=== PATIENT | female | born 1965 | race Caucasian/White ===

== ENCOUNTER → 2019-09-14 | Day surgery (SDC) | payer BC, OTHER ==
[~2019-09-14] MED LIST: ASPIR 8181 MG PO; BUPIVACAINE 0.25% 30ML SDV INJ ONE; DEXAMETHASONE SOD PHOS 10 MG/1 ML VIAL ONE; FENTANYL CITRATE/PF 100MCG/2 ML INJ ONE; GABAPENTIN300 MG PO; IOPAMIDOL 200 MG/ML 20 ML VIAL IT ONE; JANUMET 50-1,01 EACH PO; LEXAPRO20 MG PO; LIDOCAINE HCL 1% 30ML-PF VIAL ONE; LIDOCAINE HCL 2% LOCAL INJ 5 ML SDV VIAL INJ ONE; LISINOPRIL2.5 MG PO; METFORMIN HCL500 MG PO; MIDAZOLAM HCL 2 MG/2 ML VIAL ONE; MULTIBETIC PO; NEXIUM20 MG PO; PRAVACHOL40 MG PO; PROPOFOL IV EMULSION 10 MG/ML 20 ML VIAL ONE; TRIAMTERENE-HCTZ1 EA PO; VIT D3 PO
[2019-09-14 09:05] VITALS: BP 108/65
== END | disposition home or self-care (01) ==
LOC: OR 06:10
PROVIDERS: ATTEND Physical Medicine & Rehabilitation Pain Medicine
DX: M54.16 Radiculopathy, lumbar region (principal); R93.7 Abnormal findings on diagnostic imaging of other parts of musculoskeletal system; E66.01 Morbid (severe) obesity due to excess calories; E11.40 Type 2 diabetes mellitus with diabetic neuropathy, unspecified; I10 Essential (primary) hypertension; K21.9 Gastro-esophageal reflux disease without esophagitis; F17.210 Nicotine dependence, cigarettes, uncomplicated; Z88.8 Allergy status to other drugs, medicaments and biological substances; Z01.810 Encounter for preprocedural cardiovascular examination; Z01.812 Encounter for preprocedural laboratory examination; Z11.59 Encounter for screening for other viral diseases; Z79.82 Long term (current) use of aspirin; Z79.84 Long term (current) use of oral hypoglycemic drugs; Z68.30 Body mass index [BMI] 30.0-30.9, adult; Z85.841 Personal history of malignant neoplasm of brain; Z92.3 Personal history of irradiation
CPT/HCPCS: 36415; 64483; 64484; 82948; 87635; 93005; J1100; J2001 ×2; J2250; J2704; J3010; Q9967; 77003

== ENCOUNTER 2019-09-19 22:06 | Emergency (ER) | payer BC ==
[~2019-09-19] VITALS: Ht 165.1 cm; Wt 99.3 kg
[~2019-09-19 22:06] MED LIST changes: -BUPIVACAINE 0.25% 30ML SDV INJ ONE; -DEXAMETHASONE SOD PHOS 10 MG/1 ML VIAL ONE; -FENTANYL CITRATE/PF 100MCG/2 ML INJ ONE; -IOPAMIDOL 200 MG/ML 20 ML VIAL IT ONE; -LIDOCAINE HCL 1% 30ML-PF VIAL ONE; -LIDOCAINE HCL 2% LOCAL INJ 5 ML SDV VIAL INJ ONE; -MIDAZOLAM HCL 2 MG/2 ML VIAL ONE; -PROPOFOL IV EMULSION 10 MG/ML 20 ML VIAL ONE
[2019-09-19] MEDS ORDERED: MORPHINE SULFATE INJ 4 MG/ML INJ 1ML IM STA (22:55)
--- NOTE | 2019-09-19 22:55 | Emergency Department Note ---
History of Present Illnes History of Present Illness Chief Complaint: Back Pain History of Present Illness This is a 54 year old female with acute on chronic back pain s/p back injection by her pain management physician since . Pain started on R leg and migrated to L leg pain. . Historian: Patient Arrival Mode: Car Onset (how long ago): day(s) (4) Radiation: Reports back, Reports extremity Severity: moderate Onset quality: gradual Duration (how long): day(s) (4) Timing of current episode: constant Progression: worsening Context: Reports recent immobilization Relieving factors: rest Exacerbating factors: movement Associated symptoms: Reports denies other symptoms Previous service: medications given, tests performed Past Medical/Family History Physician Review I have reviewed the patient's past medical and family history. Any updates have been documented here. Past Medical History Recent Fever: No Clinical Suspicion of Infectio: No New/Unexplained Change in Ment: No Past Medical History: Hypertension Social History Smoking Cessation: Never Smoker Alcohol Use: None Any Illegal Drug Use: No Review of Systems Review of Systems Constitutional: Denies fever Musculoskeletal: Reports muscle pain, Reports other (R greater than L back pain) Physical Exam Related Data Allergies: Coded Allergies: celecoxib (Verified Allergy, Intermediate, 09/11/19) FLU SYMPTOMS Physical Exam CONSTITUTIONAL Constitutional: Present well-developed, Present morbidly obese HENT HENT: Present normocephalic, Present atraumatic, Present oropharynx clear/moist, Present nose normal HENT L/R: Present left ext ear normal, Present right ext ear normal EYES Eyes: Reports PERRL, Reports conjunctivae normal NECK Neck: Present ROM normal PULMONARY Pulmonary: Present effort normal, Present breath sounds normal CARDIOVASCULAR Cardiovascular: Present regular rhythm, Present heart sounds normal, Present capillary refill normal, Present normal rate GASTROINTESTINAL Abdominal: Present soft, Present nontender, Present bowel sounds normal GENITOURINARY Genitourinary: Present exam deferred SKIN Skin: Present warm, Present dry MUSCULOSKELETAL Musculoskeletal: Present tenderness (R calf) NEUROLOGICAL Neurological: Present alert, Present oriented x 3, Present no gross motor or sensory deficits PSYCHOLOGICAL Psychological: Present mood/affect normal, Present judgement normal Results Imaging Imaging results reviewed: Yes Impressions [place] [id number] Patient Name: VIOLETA HUNG MR #: [id number] : 1965 Age/Sex: 54/F Req #: [id number] [facility] Physician: Ordered by: SOWMYA MONAE DO Report #: [id number] Location: Room/Bed: Procedure: [id number] CT/CT LUMBAR SPINE WO Exam Date: 09/19/19 Exam Time: 2335 REPORT STATUS: Signed History: Low back pain, radiating to the right side Comparison studies: None Technique: Axial images were obtained from T12 through the sacrum. Coronal and sagittal images reconstructed from the axial data. Intravenous contrast: None Dose modulation, iterative reconstruction, and/or weight based adjustment of the mA/kV was utilized to reduce the radiation dose to as low as reasonably achievable. Findings: Number of non-rib bearing vertebral bodies: 5 Alignment: Normal lordosis. No scoliosis. Soft tissues: No prior spinal abnormalities. Atherosclerotic calcifications of the abdominal aorta. Paraspinal muscles: Unremarkable. Vertebrae: No fractures, infection or neoplasm. Degenerative changes: L1-L2: Disc degeneration with decreased intervertebral space. Diffuse disc osteophyte complex with superimposed left central disc protrusion results in no significant canal stenosis or foraminal narrowing L2-L3: Patent canal and foramina L3-L4: Mild diffuse disc bulge and mild facet hypertrophy results in mild canal stenosis and mild bilateral foraminal narrowing L4-L5: Diffuse disc bulge, mild facet hypertrophy and ligamentum flavum thickening results in moderate canal stenosis and moderate bilateral foraminal narrowing. L5-S1: Disc degeneration with decreased intervertebral space. Posterior disc osteophyte complex asymmetric to the right, and moderate facet hypertrophy results in severe canal stenosis, obliteration of the right subarticular recess, severe right and mild left foraminal narrowing Sacroiliac joints: No significant degenerative changes. IMPRESSION: 1. Severe degenerative canal stenosis, narrowing of the right subarticular recess and severe right foraminal narrowing at L5-S1. Impingement of the exiting L5 and descending S1 nerve root on the right side. 2. Moderate degenerative canal stenosis and moderate degenerative bilateral foraminal narrowing at L4-L5. 3. Other degenerative changes without significant (moderate or severe) canal stenosis or foraminal narrowing. Signed by: DR Ayaz Langley M.D. on 09/20/2019 12:26 AM Dictated By: AYAZ HICKMAN MD Transcribed By: LUIS on 09/20/1925 COPY TO: SOWMYA MONAE DO~ Diagnostics Tests Diagnostic test(s) reviewed: Yes Diagnostic comments Venous Duplex r LE : negative for DVT Assessment & Plan Medical Decision Making MDM 54 year old female with h/o chronic back pain presents to the ED with acute onset of R calf pain which radiates to the L Leg. Patient with recent epidural steroid injection. Denies f/c or saddle anesthesia. CTS without fx; severe foraminal stenosis. Venous Duplex neg for DVT R LE. referral to Dr Mcconnell, Rx tylenol #3. Overdose risk score of 450 Assessment & Plan Final Impression: (1) Lumbar radiculopathy Depart Disposition: HOME, SELF-CARE Last Vital Signs Date Time Temp Pulse Resp B/P (MAP) Pulse Ox O2 Delivery O2 Flow Rate FiO2 09/20/19 01:03 74 17 135/80 100 09/19/19 22:54 98.7 Home Meds Reported Medications Esomeprazole Magnesium (NEXIUM) 20 Mg Capsule.dr, 20 MG PO DAILY, CAP PROTONIX THERAPEUTIC INTERCHANGE PER [facility] 09/11/19 Aspirin (ASPIR 81) 81 Mg Tablet.dr, 81 MG PO DAILY 09/11/19 [Multibetic] No Conflict Check, PO DAILY 09/11/19 [Vit D3] No Conflict Check, PO DAILY 09/11/19 Sitagliptin Phos/Metformin Hcl (JANUMET 50-1,000 MG TABLET) 1 Each Tablet, 1 TAB PO BID 09/11/19 Escitalopram Oxalate (LEXAPRO) 20 Mg Tablet, 20 MG PO DAILY, TAB 09/11/19 Pravastatin Sodium (PRAVACHOL) 40 Mg Tablet, 40 MG PO HS, TAB THERAPEUTICALLY SUBSTITUTED WITH SIMVASTATIN 20MG 09/11/19 Triamterene/Hctz (TRIAMTERENE-HCTZ 37.5-25 MG TB) 1 Ea Tab, 1 EACH PO DAILY, TAB 09/11/19 Lisinopril (LISINOPRIL) 2.5 Mg Tablet, 2.5 MG PO DAILY, #30 TAB 09/11/19 Gabapentin (GABAPENTIN) 300 Mg Capsule, 600 MG PO TID, #60 CAP 09/11/19 Metformin Hcl (METFORMIN HCL) 500 Mg Tablet, 500 MG PO DAILY, #60 TAB 09/11/19 Medications in the ED Morphine Sulfate 4 mg ONCE STAT IM Last administered on 09/20/19at 00:00; Admin Dose 4 MG; Start 09/19/19 at 22:55; Stop 09/19/19 at 23:11; Status DC Diazepam 10 mg ONCE ONCE IM Last administered on 09/20/19at 00:00; Admin Dose 10 MG; Start 09/19/19 at 23:00; Stop 09/19/19 at 23:11; Status DC Acetaminophen/ Hydrocodone Bitart 1 ea ONCE ONCE PO Last administered on 09/20/19at 01:40; Admin Dose 1 EA; Start 09/20/19 at 01:45; Stop 09/20/19 at 01:46; Status DC SOWMYA MONAE DO Sep 19, 2019 22:55
[2019-09-19] MEDS ORDERED: DIAZEPAM INJ 5 MG/ML 2 ML IM ONE (23:00)
--- NOTE | 2019-09-20 00:29 | Diagnostic Imaging Report ---
History: Low back pain, radiating to the right side Comparison studies: None Technique: Axial images were obtained from T12 through the sacrum. Coronal and sagittal images reconstructed from the axial data. Intravenous contrast: None Dose modulation, iterative reconstruction, and/or weight based adjustment of the mA/kV was utilized to reduce the radiation dose to as low as reasonably achievable. Findings: Number of non-rib bearing vertebral bodies: 5 Alignment: Normal lordosis. No scoliosis. Soft tissues: No prior spinal abnormalities. Atherosclerotic calcifications of the abdominal aorta. Paraspinal muscles: Unremarkable. Vertebrae: No fractures, infection or neoplasm. Degenerative changes: L1-L2: Disc degeneration with decreased intervertebral space. Diffuse disc osteophyte complex with superimposed left central disc protrusion results in no significant canal stenosis or foraminal narrowing L2-L3: Patent canal and foramina L3-L4: Mild diffuse disc bulge and mild facet hypertrophy results in mild canal stenosis and mild bilateral foraminal narrowing L4-L5: Diffuse disc bulge, mild facet hypertrophy and ligamentum flavum thickening results in moderate canal stenosis and moderate bilateral foraminal narrowing. L5-S1: Disc degeneration with decreased intervertebral space. Posterior disc osteophyte complex asymmetric to the right, and moderate facet hypertrophy results in severe canal stenosis, obliteration of the right subarticular recess, severe right and mild left foraminal narrowing Sacroiliac joints: No significant degenerative changes. IMPRESSION: 1. Severe degenerative canal stenosis, narrowing of the right subarticular recess and severe right foraminal narrowing at L5-S1. Impingement of the exiting L5 and descending S1 nerve root on the right side. 2. Moderate degenerative canal stenosis and moderate degenerative bilateral foraminal narrowing at L4-L5. 3. Other degenerative changes without significant (moderate or severe) canal stenosis or foraminal narrowing. Signed by: DR Ayaz Langley M.D. on 09/20/2019 12:26 AM
[2019-09-20] MEDS ORDERED: HYDROCODONE/APAP 5MG-325MG TAB PO ONE (01:45)
== END 2019-09-20 01:15 | disposition home or self-care (01) ==
LOC: ER 22:06
DX: M54.16 Radiculopathy, lumbar region (principal); I10 Essential (primary) hypertension
CPT/HCPCS: 72131; 93971; 96372; 99283; J2270; J3360

== ENCOUNTER 2019-09-26 23:42 | Emergency (ER) | payer BC ==
[~2019-09-26] VITALS: Ht 165.1 cm; Wt 98.0 kg
[2019-09-27] MEDS ORDERED: KETOROLAC TROMETHAMINE 60 MG/2 ML VIAL IM ONE ×2 (01:30)
--- NOTE | 2019-09-27 01:41 | Emergency Department Note ---
History of Present Illnes History of Present Illness Chief Complaint: Back Pain History of Present Illness This is a 54 year old female female arrived by ambulance for c/o chronic back. pt states that had steriod back injections on 09/14/19 c no improvement of symptoms. pt hospitalized at [facility] for 2 days for same stated complaint.. Historian: Patient Arrival Mode: HFD Onset (how long ago): year(s) (30) Location: LOW BACK Quality: BACK PAIN Radiation: Reports extremity (BILATERAL ) Severity: severe Onset quality: gradual Duration (how long): month(s) (30 YEARS) Context: Denies recent illness, Denies recent surgery Relieving factors: immobilization Exacerbating factors: movement Associated symptoms: Reports denies other symptoms Past Medical/Family History Physician Review I have reviewed the patient's past medical and family history. Any updates have been documented here. Past Medical History Recent Fever: No Clinical Suspicion of Infectio: No New/Unexplained Change in Ment: No Past Medical History: Hypertension, Chronic Back Pain Other Medical History: CARDIOMEGALY NEUROPATHY BRAIN CA Past Surgical History: Tubal Ligation, Other Surgery: BRAIN SX SPINAL INJECTIONS Social History Smoking Cessation: Current every day smoker Counseling Performed: Yes Alcohol Use: None Any Illegal Drug Use: No TB Exposure/Symptoms: No Physically hurt or threatened: No Other Last Tetanus: UTD Any Pre-Existing Lines (PICC,: No Is patient up to date on immun: Yes Last Flu: denies Last Pneumovax: denies Review of Systems Review of Systems Constitutional: Reports no symptoms EENTM: Reports no symptoms Cardiovascular: Reports no symptoms Respiratory: Reports no symptoms Gastrointestinal: Reports no symptoms Genitourinary: Reports no symptoms Musculoskeletal: Reports as per HPI Integumentary: Reports no symptoms Neurological: Reports no symptoms Psychological: Reports no symptoms Endocrine: Reports no symptoms Hematological/Lymphatic: Reports no symptoms Physical Exam Related Data Allergies: Coded Allergies: celecoxib (Verified Allergy, Intermediate, 09/11/19) FLU SYMPTOMS Triage Vital Signs Vital Signs Date Time Temp Pulse Resp B/P (MAP) Pulse Ox O2 Delivery O2 Flow Rate FiO2 09/27/19 00:40 99.2 87 17 142/77 100 Vital signs reviewed: Yes Physical Exam CONSTITUTIONAL Constitutional: Present well-developed, Present well-nourished HENT HENT: Present normocephalic, Present atraumatic, Present oropharynx clear/moist, Present nose normal HENT L/R: Present left ext ear normal, Present right ext ear normal EYES Eyes: Reports PERRL, Reports conjunctivae normal NECK Neck: Present ROM normal PULMONARY Pulmonary: Present effort normal, Present breath sounds normal CARDIOVASCULAR Cardiovascular: Present regular rhythm, Present heart sounds normal, Present capillary refill normal, Present normal rate GASTROINTESTINAL Abdominal: Present soft, Present nontender, Present bowel sounds normal GENITOURINARY Genitourinary: Present exam deferred SKIN Skin: Present warm, Present dry MUSCULOSKELETAL Musculoskeletal: Present ROM normal, Present other (PAIN WITH ROM OF LOWER BACK, PT IS PAIN ON PALPATION ACROSS ENTIRE LOWER BACK) NEUROLOGICAL Neurological: Present alert, Present oriented x 3, Present no gross motor or sensory deficits PSYCHOLOGICAL Psychological: Present mood/affect normal, Present judgement normal Assessment & Plan Medical Decision Making [facility] PT WITH CHRONIC BACK PIAN TORADOL 60 MG IM ORDERED PT REFERRED TO [facility](PAIN MANAGEMENT) Assessment & Plan Final Impression: (1) Chronic back pain Depart Disposition: HOME, SELF-CARE Last Vital Signs Date Time Temp Pulse Resp B/P (MAP) Pulse Ox O2 Delivery O2 Flow Rate FiO2 09/27/19 00:41 99.2 87 17 142/77 100 Home Meds Reported Medications Esomeprazole Magnesium (NEXIUM) 20 Mg Capsule.dr, 20 MG PO DAILY, CAP PROTONIX THERAPEUTIC INTERCHANGE PER [facility] 09/11/19 Aspirin (ASPIR 81) 81 Mg Tablet.dr, 81 MG PO DAILY 09/11/19 [Multibetic] No Conflict Check, PO DAILY 09/11/19 [Vit D3] No Conflict Check, PO DAILY 09/11/19 Sitagliptin Phos/Metformin Hcl (JANUMET 50-1,000 MG TABLET) 1 Each Tablet, 1 TAB PO BID 09/11/19 Escitalopram Oxalate (LEXAPRO) 20 Mg Tablet, 20 MG PO DAILY, TAB 09/11/19 Pravastatin Sodium (PRAVACHOL) 40 Mg Tablet, 40 MG PO HS, TAB THERAPEUTICALLY SUBSTITUTED WITH SIMVASTATIN 20MG 09/11/19 Triamterene/Hctz (TRIAMTERENE-HCTZ 37.5-25 MG TB) 1 Ea Tab, 1 EACH PO DAILY, TAB 09/11/19 Lisinopril (LISINOPRIL) 2.5 Mg Tablet, 2.5 MG PO DAILY, #30 TAB 09/11/19 Gabapentin (GABAPENTIN) 300 Mg Capsule, 600 MG PO TID, #60 CAP 09/11/19 Metformin Hcl (METFORMIN HCL) 500 Mg Tablet, 500 MG PO DAILY, #60 TAB 09/11/19 Medications in the ED Ketorolac Tromethamine 60 mg ONCE ONCE IM Last administered on 09/27/19at 01:33; Admin Dose 60 MG; Start 09/27/19 at 01:30; Stop 09/27/19 at 01:31; Status UNV Ketorolac Tromethamine 60 mg ONCE ONCE IM ; Start 09/27/19 at 01:30; Stop 09/27/19 at 01:31; Status UNV NATI RAY MD Sep 27, 2019 01:40
--- NOTE | 2019-09-27 02:00 | NUR ---
PT SLEEPING AT THIS TIME. NO DISTRESS NOTED. RESP EVEN AND UNLABORED ON RA.
[2019-09-27 02:37] VITALS: BP 142/77
--- NOTE | 2019-09-27 02:45 | NUR ---
PT SLEEPING AT THIS TIME. NO DISTRESS NOTED. RESP EVEN AND UNLABORED ON RA. AWAKENED TO PROVIDE DC PAPERWORK. PT INFORMED THAT STATES THAT WILL NOT COME PICK HER UP UPON DISCHARGE. PT STATES THAT WILL ATTEMPT TO CALL DAUGHTER. PT PAIN REASSESSED, PT STATES BACK DISCOMFORT REMAINS 12/13.
== END 2019-09-27 03:34 | disposition home or self-care (01) ==
LOC: ER 23:42
DX: M54.5 Low back pain (principal); G89.29 Other chronic pain; I10 Essential (primary) hypertension; Z85.841 Personal history of malignant neoplasm of brain; F17.210 Nicotine dependence, cigarettes, uncomplicated
CPT/HCPCS: 99283; J1885

== ENCOUNTER 2019-10-27 09:00 | Outpatient (RCR) | payer BC | END 2019-11-03 | LOC: PT 09:00 | PROVIDERS: ATTEND Physical Medicine & Rehabilitation Pain Medicine | DX: M54.16 Radiculopathy, lumbar region (principal); M62.81 Muscle weakness (generalized); R26.2 Difficulty in walking, not elsewhere classified ==